=== PATIENT | male | born 1985 | race African-American/Black ===

== ENCOUNTER 2017-03-13 15:03 | Emergency (ER) | payer SELFPAY ==
[~2017-03-13] VITALS: Ht 180.3 cm; Wt 108.3 kg
[2017-03-13] MEDS ORDERED: KETOROLAC 30 MG/1 ML ONE (15:36)
[2017-03-13] MEDS ORDERED: DIAZEPAM 5 MG TABLET ONE (15:36)
[2017-03-13] MEDS ORDERED: PLEASE ENTER ALLERGIES MC SCH ×2 (16:00)
[2017-03-13] MEDS ORDERED: DIAZEPAM 5 MG TABLET PO ONE (16:00)
[2017-03-13] MEDS ORDERED: KETOROLAC 30 MG/1 ML IM ONE (16:00)
[2017-03-13 16:15] VITALS: BP 128/71
== END 2017-03-13 16:18 | disposition home or self-care (01) ==
LOC: ED 16:04
DX: M54.5 Low back pain (principal); G89.11 Acute pain due to trauma; M79.604 Pain in right leg
CPT/HCPCS: 96372; 99283; J1885